=== PATIENT | female | born 1990 | race Caucasian/White ===

== ENCOUNTER 2017-01-18 17:30 | Inpatient (IN) | payer SELFPAY ==
[~2017-01-18] VITALS: Ht 162.6 cm; Wt 101.6 kg
--- NOTE | ~2017-01-18 | OR ---
PATIENT'S NAME: YAMILKA ELIAS [facility] AGE: 26 Y [address] ROOM: [id number] [place] [id number] LOCATION: [facility] [place] ADMIT DATE: 01/18/2017 OR/Procedure Report DISCHARGE DATE: 01/20/2017 FAMILY PHYSICIAN: Danelle Beckham PA-C ATTENDING PHYSICIAN: ANDREW MONK SURGEON: Emre Larose MD PIPE CUTTER: DATE OF PROCEDURE: 01/19/2017 Added assist per physician 02/01/17 AO PREOPERATIVE DIAGNOSIS: Cholelithiasis. POSTOPERATIVE DIAGNOSIS: Choledocholithiasis. PROCEDURE: Laparoscopic cholecystectomy with intraoperative cholangiogram as well as common bile duct exploration. ASSISTING SURGEON: Baltazar Lara PA-C ESTIMATED BLOOD LOSS: Less than 50 mL. COMPLICATIONS: None. INDICATIONS: The patient is a 26-year-old female who presented with elevated bilirubin and cholelithiasis by ultrasound. She had a mildly dilated bile duct. She had an MRCP, which was negative. We discussed cholecystectomy of the patient with cholangiogram and potential for common bile duct stone, retained stones, risks, benefits, and alternatives of surgery, and ultimately she wished to proceed. DESCRIPTION OF PROCEDURE: The patient was taken to the operating room. She was placed supine. She is given IV sedation and subsequently intubated. Abdomen was prepped with ChloraPrep and sterilely draped. Local anesthetic was infiltrated just superior to the umbilicus. A transverse incision was created. The abdomen was elevated. Veress needle was inserted. Pneumoperitoneum was induced. Following this, a 5-mm trocar was inserted followed by insertion of the camera. There was no injury from initial trocar placement. Three more trocars were then positioned, an 11-mm epigastric, and two 5-mm right subcostal ports. Skin overlying the peritoneum was first anesthetized prior to making incisions. All 3 of these trocars were inserted under direct visualization. The gallbladder was very distended. It was grasped and elevated. On grasping, a hole was created in the lumen, bile was suctioned from this, we regrasped the gallbladder, and no further bile spilled from the gallbladder. The infundibulum was then grasped and retracted inferiorly and laterally. There were stones in the dependent portions of the gallbladder. We were able to dissect circumferentially around both the cystic duct and artery. PATIENT'S NAME: YAMILKA ELIAS [facility] AGE: 26 Y [address] ROOM: [id number] [place], [place] [address] LOCATION: [facility] [place] ADMIT DATE: 01/18/2017 OR/Procedure Report DISCHARGE DATE: 01/20/2017 FAMILY PHYSICIAN: Danelle Beckham PA-C ATTENDING PHYSICIAN: ANDREW MONK The cystic duct was noted to be dilated. A clip was placed on the proximal cystic duct and this was transected. The cystic duct was then milked back with graspers. Three stones were present within the cystic duct. We then advanced a cholangiogram catheter into the cystic duct. This is a balloon-tipped catheter. A cholangiogram was able to be obtained. This revealed flow of contrast into right and left hepatic ducts and down towards the distal common bile duct; however, we could not get flow to go into the distal common bile duct. We advanced the balloon into the common bile duct using fluoroscopic guidance. We tried to advance this through the sphincter, but could not advance our catheter through this. We withdrew the catheter to the distal bile duct. We inflated the balloon and again under fluoroscopy injected contrast. We still had a cutoff sign at the distal bile duct and could not obtain flow of contrast into the duodenum. We then advanced the balloon down towards the sphincter of Oddi. We flushed vigorously then withdrew the balloon under fluoroscopic guidance with it inflated. On withdrawal of the balloon, a stone was able to be removed from the common bile duct. This had been brought out through the cystic duct by the balloon. We then reinserted our cholangiogram catheter to the distal common bile duct; and using fluoroscopy, the bile was then able to be seen passing through the distal bile duct and into the duodenum. We then further withdrew back to the cystic duct and again obtained a cholangiogram. We were able to continue to see the flow of contrast into the duodenum without filling defects. We diluted the contrast with saline and still no filling defects were able to be visualized; at this point in time, we completed our cholangiogram and bile duct exploration. The clips were then placed on the cystic duct. It was then transected. The cystic artery was doubly clipped and transected. The gallbladder was then removed from the liver bed using electrocautery. This was placed in EndoCatch bag and brought out through the epigastric port site. The liver bed was then inspected and it appeared hemostatic. Clips appeared to be in good position on the cystic duct and artery. The abdominal cavity was copiously irrigated. The fluid was then removed. The pneumoperitoneum was released. The trocars were removed. The trocar sites appeared hemostatic. The fascia at the epigastric port site was approximated with 0 Vicryl suture followed by skin closure of all 4 port sites with 4-0 Monocryl suture. Steri-Strips and sterile dressings were placed. The patient was extubated and sent to recovery in good condition. EMRE MD REILLY GABRIEL/erlin /[id number] PATIENT'S NAME: YAMILKA ELIAS [facility] AGE: 26 Y [address] ROOM: [place] [address] LOCATION: [facility] [place] ADMIT DATE: 01/18/2017 OR/Procedure Report DISCHARGE DATE: 01/20/2017 FAMILY PHYSICIAN: Danelle Beckham PA-C ATTENDING PHYSICIAN: ANDREW MONK Added assist per physician 02/01/17 AO d: 01/19/17 2328 t: 02/03/17 1658, OPERATIVE SUMMARY
--- NOTE | ~2017-01-18 | CON ---
PATIENT'S NAME: ELIAS, [facility] AGE: 26 Y [address] ROOM: [place] [address] LOCATION: [facility] [place] ADMIT DATE: 01/18/2017 Consultation DISCHARGE DATE: FAMILY PHYSICIAN: Danelle Beckham PA-C ATTENDING PHYSICIAN: Christophe LOTT DATE OF CONSULTATION: 01/18/2017 REFERRING PHYSICIAN: Sarah Martinez MD TIME SEEN: 2313 hours. REFERRING PHYSICIANS: Dr. Christophe Lott and Dr. García. CONSULTING PHYSICIAN: Sarah Martinez MD REASON FOR CONSULTATION: Abdominal pain, jaundice, and dilated CBD on ultrasound. HISTORY OF PRESENT ILLNESS: The patient is a very pleasant 26-year-old white female who has a history of abdominal pain in the past. She had the 1st episode of pain in July 2016. The patient was found to have gallstones, but the HIDA scan did not show any biliary obstruction. According to her, she was not recommended surgery at that time. About 4 weeks ago, she started having intermittent abdominal discomfort in the right upper quadrant along with heaviness. About 4 days ago, she developed severe abdominal pain. Over the course of the days, she did develop dark urine. The pain was in the right upper quadrant and became unbearable and this is when she came to the hospital. When she was evaluated today in the clinic, she was found to have cholelithiasis as well as a CBD measuring 1.1 cm; they could not rule out a distal CBD obstruction. Her bilirubin was found to be increased to 5, ALT of 214, AST of 131, alkaline phosphatase 147. She was referred here for further evaluation. The patient denies any history of fever. She did have some chills today, but no fever. She has been vomiting everything she eats. ALLERGIES: NO KNOWN DRUG ALLERGIES. CURRENT MEDICATIONS: Include Risperidone and Hydrochlorothiazide. PATIENT'S NAME: JADA [facility] AGE: 26 Y [address] ROOM: [place] [address] LOCATION: [facility] [place] ADMIT DATE: 01/18/2017 Consultation DISCHARGE DATE: FAMILY PHYSICIAN: Danelle Beckham PA-C ATTENDING PHYSICIAN: Christophe LOTT PAST MEDICAL HISTORY: History of thyroid disorders. She stopped taking any thyroid medication about a year ago. Anxiety disorder. She also has essential hypertension. PAST SURGICAL HISTORY: Significant for tonsillectomy and adenoidectomy in 2005. FAMILY HISTORY: Father has diabetes mellitus. Father has also glaucoma. Mother has thyroid disorder. Father is also an alcoholic and father with heart disease. Her grandfather also had a cerebrovascular accident. SOCIAL HISTORY: Psychosocial, she does smoke everyday and has been smoking since 2008. REVIEW OF SYSTEMS: A detailed 10-point review of system was done. It was found to be negative other than what is mentioned in the history of present illness and past medical history. PHYSICAL EXAMINATION: GENERAL: Today, she is alert, awake, and appears to be in no acute distress. VITAL SIGNS: From today show blood pressure 146/88. She has remained stable. Temperature 98.3, pulse is 102 per minute, respiratory rate 22. SKIN: Reveals mild icterus. No pallor. HEAD/ENT: Oral cavity is normal. Nasal passages are clear. NECK: No thyromegaly is felt. No masses are felt. CARDIOVASCULAR: S1 and S2. CHEST: Clear to auscultation bilaterally. No wheezing. No rhonchi. ABDOMEN: Soft. There is mild right upper quadrant tenderness. No rigidity, guarding, or rebound. MUSCULOSKELETAL: No obvious injuries, deformities are seen. NEUROLOGICAL: Grossly nonfocal. LABORATORY DATA: Labs done today showed amylase and lipase is normal at 31 and 157 respectively. Her other labs show WBC count of 8.8, hemoglobin 13.3, hematocrit 39.8, platelet count of 258. Sodium 140, potassium 4.0, chloride 100, bicarb is 25, BUN is 6, creatinine 0.61, albumin is 4.4, AST 121, ALT of 214, alkaline phosphatase is 147, bilirubin is 5. Ultrasound findings as above. IMPRESSION: The patient with a history of gallstones now presenting with what appears to be choledocholithiasis. She does appear to have obstructive jaundice. She PATIENT'S NAME: YAMILKA ELIAS [facility] AGE: 26 Y [address] ROOM: [place] [address] LOCATION: [facility] [place] ADMIT DATE: 01/18/2017 Consultation DISCHARGE DATE: FAMILY PHYSICIAN: Danelle Beckham PA-C ATTENDING PHYSICIAN: Christophe LOTT does not have any clinical or laboratory evidence of cholangitis. RECOMMENDATIONS: The patient has been scheduled for an MRCP in the morning. This morning, we will keep her n.p.o., and give her pain control. She has no evidence of cholangitis, so I would not start antibiotics. Should the MRCP be positive for choledocholithiasis, we will be performing an ERCP. The procedure of ERCP was explained in detail to the patient. All risks, including but not limited to, failure to complete the procedure, acute pancreatitis, bleeding perforation, and risk of anesthesia were clearly explained. All questions were answered. The patient was duly counseled and informed consent was then obtained. Thank you once again for the courtesy of this consultation. We will be happy to follow this patient along with you. NAYELIF MD FARZANA CHOI/erlin /[id number] d: 01/19/17 0429 t: 01/19/17 1646, CONSULTATION REPORT
--- NOTE | ~2017-01-18 | CON ---
[facility] AGE[facility] 26 Y [address] ROOM: [place] [address] LOCATION: [facility] [place] ADMIT DATE: 01/18/2017 Consultation DISCHARGE DATE: FAMILY PHYSICIAN: Danelle Beckham PA-C ATTENDING PHYSICIAN: Christophe RODRIGUEZ DATE OF CONSULTATION: 01/19/2017 REFERRING PHYSICIAN: Sarah Martinez MD CHIEF COMPLAINT: Abdominal pain. HISTORY OF PRESENT ILLNESS: The patient is a 26-year-old female who said, in July, she had abdominal pain. This was her first episode of abdominal pain. She was seen in [place] where she was found to have gallstones. No cystic duct obstruction. She did not have surgery after this. She had very mild intermittent discomfort from July until now. Described intermittent symptoms after eating, thought this was just indigestion. However, approximately 5 days ago, she developed abdominal pain. She describes it in the right upper quadrant with radiation into her back. She said she tried to tough this out at home; however, her pain got more and more severe. Ultimately, she presented to the emergency room where she was evaluated and was found to have a bilirubin of 5 with a dilated common bile duct up to 1.1 cm. She had no fevers or chills. No known history of liver disease. She has had no previous abdominal surgeries. She has had some constipation lately. Otherwise, bowel has been working without significant difficulty. ALLERGIES: NONE. CURRENT MEDICATIONS: 1. Risperidone. 2. Hydrochlorothiazide. PAST SURGICAL HISTORY: Tonsillectomy, adenoidectomy, as well ankle surgery. PAST MEDICAL HISTORY: Anxiety and hypertension. FAMILY HISTORY: Father with diabetes and glaucoma. Grandfather, history of cerebrovascular accident. [facility]GE: 26 Y [address] ROOM: [place] [address] LOCATION: [facility] [place] ADMIT DATE: 01/18/2017 Consultation DISCHARGE DATE: FAMILY PHYSICIAN: Danelle Beckham PA-C ATTENDING PHYSICIAN: Christophe RODRIGUEZ SOCIAL HISTORY: She is a smoker, been smoking since 2008, approximately a pack a day. REVIEW OF SYSTEMS: She denies headaches, fevers, or chills. She has had nausea and vomiting intermittently for the last 5 days with pain after eating. She has had some recent constipation. No melena or hematochezia. No hematuria or dysuria. She does carry a distant history of hypothyroidism; however, is not on any medications currently. No diabetes. A full review of systems was negative. PHYSICAL EXAMINATION: HEENT: Head is normocephalic. Eyes do not reveal significant scleral icterus. NECK: Without lymphadenopathy. HEART: Regular rate and rhythm. LUNGS: Clear to auscultation bilaterally. ABDOMEN: Soft. There is mild tenderness to palpation in the right upper quadrant. No rebound or guarding is present. It is obese. There are no other palpable masses. EXTREMITIES: Warm. No edema. LABORATORY DATA: Current laboratory work revealed a total bilirubin of 3.5. Alkaline phosphatase 163, AST 109, and ALT 209. White blood cell count 9.4, hemoglobin 13, and platelets 249. Amylase and lipase were within normal limits. ASSESSMENT: Cholelithiasis. PLAN: At this point in time, the patient did have an MRCP which was normal. Her bilirubin has come down. With cholelithiasis, I would recommend cholecystectomy. We discussed this with the patient; the risks which include, but are not limited to bleeding, infection, bile leak, bile duct injury, and injury to other viscera. We discussed retained stones. We discussed intraoperative cholangiogram as well as common bile duct exploration and complications thereof, potential need for postoperative ERCP, and the postoperative course. She understands the risks of surgery and would like to proceed. We will schedule this in the near future. PRINCE CRAFT MD PATIENT'S NAME: YAMILKA ELIAS [facility] AGE: 26 Y [address] ROOM: [address] [address] LOCATION: [facility] [place] ADMIT DATE: 01/18/2017 Consultation DISCHARGE DATE: FAMILY PHYSICIAN: Danelle Beckham PA-C ATTENDING PHYSICIAN: Christophe RODRIGUEZ /[id number] d: 01/19/17 1234 t: 01/23/17 1454, CONSULTATION REPORT
--- NOTE | ~2017-01-18 | DS ---
PATIENT'S NAME: ELIAS, [facility] AGE: 26 Y [address] [place]OM: [facility] [place] [address] LOCATION: [facility] [place] ADMIT DATE: 01/18/2017 Discharge Summary DISCHARGE DATE: 01/20/2017 FAMILY PHYSICIAN: Danelle Beckham PA-C ATTENDING PHYSICIAN: Kaylie Saeed CHIEF COMPLAINT: Obstructive jaundice. PRINCIPAL DIAGNOSES ON DISCHARGE: Choledocholithiasis, status post laparoscopic cholecystectomy as well as intraoperative cholangiogram. SECONDARY DIAGNOSES: 1. Hypertension. 2. Anxiety. HOSPITAL COURSE: A 26-year-old lady with past medical history of anxiety and depression, who was admitted to the hospital with a right upper quadrant scan from an outside facility. She was found to have obstructive jaundice and biliary dilatation on the CAT scan. An MRCP was done, which did show biliary dilatation but no stone was identified. Surgical consultation was made, and the patient was taken to the OR for laparoscopic cholecystectomy as well as intraoperative cholangiogram, which did end up removing of the stone. Her LFTs including bilirubin, alkaline phosphatase trended downwards during the course of the hospitalization, and she progressed well. On the day of discharge, she was hemodynamically stable. She was deemed okay to be discharged. DISCHARGE MEDICATIONS: 1. Buspirone 7.5 mg p.o. daily. 2. Hydrochlorothiazide 25 mg p.o. daily. 3. Percocet 3-325 - mg p.o. q.6 hours p.r.n. for pain, one week supply. ACTIVITY: As tolerated. DIET: Low-sodium diet. FOLLOWUP: Follow up with surgery Dr. Larose in 7 to 10 days. MD FLOYD MENDOZA/erlin [facility] 26 Y [address] ROOM: [place] [address] LOCATION: [facility] [place] ADMIT DATE: 01/18/2017 Discharge Summary DISCHARGE DATE: 01/20/2017 FAMILY PHYSICIAN: Danelle Beckham PA-C ATTENDING PHYSICIAN: Kaylie Saeed /[id number] d: 01/21/17 0356 t: 01/21/17 1528, DISCHARGE SUMMARY
--- NOTE | ~2017-01-18 | HP ---
PATIENT'S NAME: ELIAS, [facility] AGE: 26 Y [address] ROOM: [address] [address] LOCATION: [facility] [place] ADMIT DATE: 01/18/2017 History & Physical DISCHARGE DATE: FAMILY PHYSICIAN: Danelle Beckham PA-C ATTENDING PHYSICIAN: Christophe RODRIGUEZ DATE OF SERVICE: CHIEF COMPLAINT: Obstructive jaundice. HISTORY OF PRESENTING ILLNESS: This 26-year-old white female with previous history of cholelithiasis and hypertension was transferred to [facility] from [place], [place] this evening with epigastric and right upper quadrant abdominal pain of 4 days' duration. She had presented there this morning with 4 days of progressive abdominal distress, anorexia, and intractable nausea and vomiting. While she was there, laboratory studies demonstrated hyperbilirubinemia with a total bilirubin of 5.0 and imaging study with ultrasound demonstrated cholelithiasis. She did have a dilated common bile duct at 1.1 cm, but no obvious obstructive lesion was identified. The case was apparently discussed with Dr. Martinez, Gastroenterology, and it was requested that she be transferred here for definitive evaluation and management. On her arrival, she complains of some epigastric discomfort, but is greatly improved over the course of the day. She has not been able to keep anything down for the last 4 days. She complains that she is "dehydrated." She has been stooling and stooled last yesterday. She voided a little bit today, but reports that it was dark and "concentrated." She denies any dysuria or urgency and no hematuria. She denies fevers, but has had some chills intermittently. She denies headaches, dizziness, or lightheadedness. No chest pain. No significant shortness of breath, although it does hurt to take a deep breath. She has not noticed any blood in her stools or black tarry stools. No numbness, tingling, or weakness in her extremities. No body rash or any other associated physical or constitutional complaints. PAST MEDICAL HISTORY: ALLERGIES: NO KNOWN DRUG ALLERGIES. ILLNESSES: 1. Cholelithiasis, identified 4 months ago. PATIENT'S NAME: [facility] AGE: 26 Y [address] ROOM: [id number] [place], [place] [address] LOCATION: [facility] [place] ADMIT DATE: 01/18/2017 History & Physical DISCHARGE DATE: FAMILY PHYSICIAN: Danelle Beckham PA-C ATTENDING PHYSICIAN: Christophe RODRIGUEZ 2. Essential hypertension. 3. Obesity. 4. Anxiety, generalized. 5. "Thyroid problems.". 6. Alcohol abuse by history. 7. Tobacco abuse. CURRENT MEDICATIONS: 1. BuSpar 15 mg half tablet p.o. b.i.d. 2. HCTZ 25 mg p.o. daily. 3. Ibuprofen p.r.n. FAMILY HISTORY: Significant for diabetes mellitus type 2 in her father. He also has high blood pressure and glaucoma. SOCIAL HISTORY: She is unmarried and lives in [place]. She does have an 8-pack-year history of smoking tobacco and continues to smoke a few cigarettes per day. She also has a recent history of alcohol abuse, drinking a liter of vodka a day for the last couple of weeks. She blames this on "stress." She has not had anything to drink for in 3 days. REVIEW OF SYSTEMS: As per HPI. All other organ systems reviewed and are negative. OBJECTIVELY: VITAL SIGNS: Temperature 98.8, pulse 105, respirations 18, blood pressure 158/101, and O2 saturation 96% on room air. GENERAL: She is anxious, but cooperative, seated in the chair, in no acute distress. SKIN: Supple, pink, warm, and dry. No obvious rash, although there is a sallowed hue. HEENT: Otherwise, normocephalic. Sclerae are mildly icteric. Pupils are equal, round, and reactive to light and accommodation. Extraocular movements appear intact. Nasal turbinates are normal in appearance. Oropharynx is clear. Mucous membranes are pink and moist. NECK: Supple. Plethoric. No masses or adenopathy. No thyromegaly. No JVD. CHEST: Chest wall is symmetrical. HEART: Tachycardic but regular. LUNGS: Diminished at the bases. No crackles or wheezes are heard. ABDOMEN: Soft and obese. Diffusely tender with some guarding over the mid epigastrium and right upper quadrant. No masses or hepatosplenomegaly. : Not done. RECTAL: Not done. [facility]GE[facility] 26 Y [address] ROOM: [id number] [place], [place] [address] LOCATION: [facility] [place] ADMIT DATE: 01/18/2017 History & Physical DISCHARGE DATE: FAMILY PHYSICIAN: Danelle Beckham PA-C ATTENDING PHYSICIAN: Christophe RODRIGUEZ EXTREMITIES: Display trace pitting edema. No cyanosis. NEUROLOGICAL: Anxious, but no focal deficits. LABORATORY AND X-RAY DATA: From [place]: CBC showed white blood cell count 8.81, hemoglobin 13.3, hematocrit 39.8, and platelets 258. Chemistries revealed BUN and creatinine of 6 and 0.61, sodium and potassium 140 and 4.0, chloride and CO2 are 100 and 25 respectively. AST and ALT 131 and 214, bilirubin is 5.0. A right upper quadrant abdominal ultrasound showed common bile duct distention at 1.1 cm with cholelithiasis. ASSESSMENT AND PLAN: 1. Obstructive jaundice. We will admit to inpatient care. We will initiate some supportive cares including IV fluids and symptomatic treatment with Zofran for nausea and Dilaudid for relief of pain. We will hold off on antibiotics with limited evidence for acute cholangitis or cholecystitis. We will get blood cultures and venous lactate tonight, however. Additionally, we will check amylase and lipase to help rule out concomitant pancreatitis. We will consult Gastroenterology, Dr. Martinez, and anticipate additional imaging in the morning with either ERCP or MRI depending on his preference. Currently, she is clinically stable. I discussed the expected clinical course with her and she conveyed understanding. 2. Essential hypertension, uncontrolled. We will plan to resume her home regimen. We will use hydralazine for breakthrough control tonight. 3. Anorexia. She was supplemented with IV fluids for now and await additional GI evaluation. 4. Alcohol abuse. Urge abstinence. We will monitor although she has been abstinent for over 48 hours now and the risk for withdrawal is felt to be fairly low. 5. Generalized anxiety. She may need some help with this ultimately and with regard to her alcohol abuse disorder. Consider initiating SSRI therapy and/or providing referral for outpatient counseling. 6. Tobaccoism. Urged cessation. Gave some preliminary counseling about that. She is in the contemplative phase. We will start nicotine transdermal 14 mg, apply and change daily. 7. Deep venous thrombosis prophylaxis. We will use serial compression devices until after ERCP is performed possibly tomorrow. MD RODO YOO/erlin PATIENT'S NAME: YAMILKA ELIAS [facility] AGE: 26 Y [address] ROOM: [place] [address] LOCATION: [facility] [place] ADMIT DATE: 01/18/2017 History & Physical DISCHARGE DATE: FAMILY PHYSICIAN: Danelle Beckham PA-C ATTENDING PHYSICIAN: Christophe RODRIGUEZ /[id number] D: [id number] T: [id number] HISTORY & PHYSICAL
[2017-01-18] MEDS ORDERED: BUSPIRONE HCL15 MG PO (20:47)
[2017-01-18] MEDS ORDERED: HYDROCHLOROTHIA25 MG PO (20:52)
[2017-01-18] MEDS ORDERED: ADVIL200 MG PO (20:58)
--- NOTE | 2017-01-19 03:54 | NUR ---
ADMITTED / BILE DUCT OBSTRUCTION, ABD PAIN/EPIGASTRIC PAIN UNDER RIB CAGE 02/24, NO N/V THIS SINCE ADMIT, LFA PIV RUNNING NS@150ML/HR, PAIN CONTROLLED WITH DILAUDID IVP LD 0.5@0200 WITH EXCELLENT RESULTS, GOOD BOWEL SOUNDS NOW, UP INDEPENDENT IN ROOM AND MOTHER SPENT THE NIGHT. SCHEDULED FOR A MRCP THIS AM AND HAS BEEN NPO SINCE MIDNIGHT BUT WAS TOLERATING ICE CHIPS PRIOR, C/S WAS DONE WITH DR GALLARDO AND HOSPITALIST. CONSENT ON CHART AND NEEDS SIGNED. PROCEDURE CHECKLIST ON FRONT OF CHART AND STARTED. VERY LOW URINE OUTPUT BUT LABS FROM [facility] SHOWED DEHYDRATION.
[2017-01-19 05:42] LABS: BASOPHIL % 0.4 %; EOSINOPHIL # 0.1 K/uL (0.0-0.5); EOSINOPHIL % 1.2 %; HEMATOCRIT 40.7 % (33.0-46.0); IMMATURE GRANULOCYTE % 0.3 %; LYMPHOCYTE # 1.7 K/uL (0.8-4.0); LYMPHOCYTE % 17.6 %; MCH 25.4 pg (27.0-34.0); MCHC 31.9 gm/dL (32.0-36.5); MCV 79.6 fl (83.0-98.0); MONOCYTE # 0.5 K/uL (0.0-1.0); MONOCYTE % 5.6 %; MPV 11.4 fl (9.4-12.4); NEUTROPHIL % 74.9 %; NRBC % 0 /100WBC (0-0.00); PLATELET COUNT 249 K/uL (150-450); RBC 5.11 M/uL (3.50-5.00); RDW-CV 13.2 % (11.9-14.6); WBC 9.4 K/uL (4.0-11.0)
[2017-01-19 06:00] LABS: ALBUMIN 3.7 gm/dL (3.5-5.0); ALK PHOS 163 IU/L (33-138); ALT 209 IU/L (12-78); ANION GAP 12.9 (10.0-19.0); AST 109 IU/L (10-40); BLOOD UREA NITROGEN 7 mg/dL (6-24); CALCIUM 8.5 mg/dL (8.5-10.5); CHLORIDE 107 mMol/L (96-110); CO2 26 mMol/L (22-32); ESTIMATED GFR (MDRD EQUATION) > 60; POTASSIUM 3.9 mMol/L (3.7-5.1); SODIUM 142 mMol/L (135-145); TOTAL BILIRUBIN 3.5 mg/dL (0.0-1.5)
--- NOTE | 2017-01-19 19:03 | NUR ---
Significant event: Patient is alert and oriented x3. VSS, is hypertensive since returning after lapchole. On room air.IV to left forearm with fluids running. Is clear liquids, advance as tolerated. Needs to ambulate. Had MRCP this morning and a lapchole with cholangiogram this afternoon. Arrived to floor at 1745. Had Morphine 2mg. Measure urine. 4 stab incisions to abd, dressings are intact. Mid upper dressing has a moderate amt of drainage on it, the others are dry. May change dressings PRN. Ice to the upper mid incision for discomfort. No complaints of nausea since arrival to floor. Cooperative with cares.
--- NOTE | 2017-01-20 03:31 | NUR ---
Significant Event:PT AAOX3.PLEASANT WITH STAFF AND CARES.VSS,UP INDEPENDENT WALKS IN HALLS NUMEROUS TIMES. SURGICAL SITE X4,DRESSING TO UPPER SITE CHANGED ALL CLEAN/DRY/INTACT AT THIS TIME. TOLERATING LUQUIDS VERY WELL,ADVANCING TOLERATED.LAST PAIN MEDICAITON GIVEN AT 0040.PT HAS BEEN RESTING WELL SINCE THAT TIME.PTIV TO RIGHT FOREARM RUNNING LR AT 100ML/HR.BOWEL SOUND HYPO AND PT HAS NOT PASSED GAS YET. Follow up:
[2017-01-20 06:12] LABS: BASOPHIL % 0.2 %; EOSINOPHIL % 0.2 %; HEMATOCRIT 39.8 % (33.0-46.0); HEMOGLOBIN 12.5 g/dL (11.0-15.0); IMMATURE GRANULOCYTE % 0.3 %; LYMPHOCYTE # 1.7 K/uL (0.8-4.0); LYMPHOCYTE % 16.9 %; MCH 25.6 pg (27.0-34.0); MCHC 31.4 gm/dL (32.0-36.5); MCV 81.6 fl (83.0-98.0); MONOCYTE # 0.5 K/uL (0.0-1.0); MONOCYTE % 4.4 %; MPV 11.7 fl (9.4-12.4); NEUTROPHIL # (ANC) 7.9 K/uL (1.8-7.8); NRBC % 0 /100WBC (0-0.00); PLATELET COUNT 263 K/uL (150-450); RBC 4.88 M/uL (3.50-5.00); RDW-CV 13.6 % (11.9-14.6); WBC 10.1 K/uL (4.0-11.0)
[2017-01-20 06:34] LABS: ALBUMIN 3.5 gm/dL (3.5-5.0); ALK PHOS 138 IU/L (33-138); ALT 172 IU/L (12-78); AST 91 IU/L (10-40); BLOOD UREA NITROGEN 7 mg/dL (6-24); CALCIUM 9.2 mg/dL (8.5-10.5); CHLORIDE 104 mMol/L (96-110); CO2 24 mMol/L (22-32); CREATININE 0.8 mg/dL (0.5-1.1); ESTIMATED GFR (MDRD EQUATION) > 60; MAGNESIUM 2.4 mg/dL (1.3-2.6); SODIUM 138 mMol/L (135-145); TOTAL BILIRUBIN 1.8 mg/dL (0.0-1.5); TOTAL PROTEIN 7.9 g/dL (6.0-8.4)
[2017-01-20] MEDS ORDERED: NICODERM CQ1 EAC1 TRANS (14:51)
[2017-01-20] MEDS ORDERED: NORCO 5-325 TA1 EACH PO (14:52)
--- NOTE | 2017-01-20 15:30 | NUR ---
D: ORDERS RECEIVED FOR THE PATIENT TO BE DISHCARGED TO HOME TODAY I: DISMISSAL INSTRUCTIONS WERE PREPARED AND REVIEWED WITH THE PATIENT AND HER MOTHER VIRTUALLY. THE FOLLOWING INFORMATION WAS DISCUSSED INCLUDING BRIGID TEACHING SHEETS PROVIDED: NORCO, DISCHARGE INSTRUCTIONS FOR LAP CHOLECSTECTOMY, NICOTINE PATCH AND PREVENTING DVT. REVIEWED FOLLOW UP APPOINTMENT WITH DR. CRAFT AND NEW PRESCRIPTIONS. R: THE PATIENT AND HER MOTHER BOTH VERBALIZED UNDERSTANDING OF THE DISMISSAL EDUCATION AT THE TIME OF TEACHING WITH NO FURTHER QUESTIONS. P: THE ABOVE INFORMATION WAS SHARED WITH THE PRIMARY NURSE AND THE CHARGE NURSE THAT THE PATIENT DISMISSAL EDUCATION WAS COMPLETED. THE PATIENT IS READY FOR DISCHARGE TO THE FRONT DOOR VIA WHEEL CHAIR BY NURSING STAFF.
--- NOTE | 2017-01-20 16:30 | NUR ---
Discharge Note: patient is alert and oriented. VSS. On room air. IV dc'd with no complications. Patient requested pain medication before leaving due to a long car ride home. That was given to patient. Patient was ambulated to the [place] front door and to car with mom. Instructed to call Dr Larose with any questions, problems, or concerns.
== END 2017-01-20 15:30 | disposition disaster alternative care site (69) | DRG 419 ==
LOC: GMSU 20:12
PROVIDERS: Family Medicine; Physician Assistant; ADMIT Internal Medicine
DX: K80.50 Calculus of bile duct without cholangitis or cholecystitis without obstruction (principal); I10 Essential (primary) hypertension; F41.1 Generalized anxiety disorder; E66.9 Obesity, unspecified; Z68.38 Body mass index [BMI] 38.0-38.9, adult; R63.0 Anorexia; F10.10 Alcohol abuse, uncomplicated; F17.210 Nicotine dependence, cigarettes, uncomplicated
CPT/HCPCS: J0694; J1170; J2270; J2405; J2550; J7030; J7120